=== PATIENT | female | born 1990 | race Caucasian/White ===

== ENCOUNTER 2019-05-08 12:29 | Emergency (ER) | payer SELFPAY ==
[~2019-05-08] VITALS: Ht 154.9 cm; Wt 84.1 kg
[~2019-05-08 12:29] MED LIST: DEPOP150I IM
[2019-05-08] MEDS ORDERED: GuaiFENesin/D-METHORPHAN [SUGAR-FREE] 200-20MG/10 ML SYRUP UDCUP PO ONE (14:45)
[2019-05-08] MEDS ORDERED: ACETAMINOPHEN/CODEINE 300-30 MG TABLET PO ONE (14:45)
[2019-05-08] MEDS ORDERED: KETOROLAC TROMETHAMINE 60 MG/2 ML VIAL IM ONE (14:45)
[2019-05-08 14:49] VITALS: BP 121/73
== END 2019-05-08 15:10 | disposition home or self-care (01) ==
LOC: EMS 12:33
DX: J06.9 Acute upper respiratory infection, unspecified (principal); J20.9 Acute bronchitis, unspecified
CPT/HCPCS: 96372; 99283; J1885